=== PATIENT | male | born 2005 | race African-American/Black ===

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

== ENCOUNTER 2023-07-26 01:33 | Emergency (ER) | payer OTHER ==
[~2023-07-26] VITALS: Ht 170.2 cm; Wt 59.0 kg
[2023-07-26 01:52] VITALS: O2SAT 100
[2023-07-26] MEDS ORDERED: ACETAMINOPHEN 325MG TABLET PO NR (02:27)
[2023-07-26] MEDS ORDERED: BACITRACIN ZINC OINT UDPKT TOP NR (02:30)
[2023-07-26] MEDS ORDERED: LIDOCAINE HCL/PF 1% 10 MG/ML 5ML VIAL INFIL NR (02:30)
[2023-07-26] MEDS ORDERED: ONDANSETRON HCL 4MG/2ML INJ IV ONE (04:30)
[2023-07-26] MEDS ORDERED: LEVETIRACETAM 500MG PREMIX 100 ML IV ONE (04:30)
[2023-07-26 04:58] VITALS: BP 110/68; PULSE 88; RESP 16; TEMP 98.7
[2023-07-26] MEDS ORDERED: TRANEXAMIC ACID 1,000 MG/10 ML IV ONE (05:30)
== END 2023-07-26 05:42 | disposition home or self-care (01) ==
LOC: ER 01:33
DX: S01.01XA Laceration without foreign body of scalp, initial encounter (principal); R51.9 Headache, unspecified; Z88.2 Allergy status to sulfonamides; Y04.0XXA Assault by unarmed brawl or fight, initial encounter; Y93.89 Activity, other specified; Y92.89 Other specified places as the place of occurrence of the external cause; Y99.8 Other external cause status
CPT/HCPCS: 70450; 12002; 96365; 96375; 99285; J1953; J3490; J2405; Z7610 ×2